=== PATIENT | female | born 1945 | race Caucasian/White ===

== ENCOUNTER → 2017-02-08 08:30 | Outpatient (CLI) | payer MEDICARE, OTHER ==
[2014-02-13 17:51] VITALS: BMI 29.2
[~2017-02-08 08:30] MED LIST: ASPIRIN325 MG PO; ASPIRIN81 MG PO; CATAPRES0.1 MG PO; CELEXA20 MG PO; CYCLOBENZAPRINE10 MG PO; K-DUR20 MEQ PO; KLONOPIN1 MG PO; LASIX40 MG PO; PLAVIX75 MG PO; PRAVACHOL20 MG PO; ZANTAC150 MG PO
[2017-03-04 16:48] VITALS: BMI 25.5
== END | disposition home or self-care (01) ==
LOC: D.US 08:30
DX: C93.10 Chronic myelomonocytic leukemia not having achieved remission (principal)

== ENCOUNTER 2017-10-02 16:56 | Observation (INO) | payer MEDICARE, OTHER ==
--- NOTE | ~2017-10-02 | HEMODYNAMI ---
PATIENT:BRADEN APODACA MEDICAL RECORD: [id number] : 49 LOCATION:[facility] D.2120 ADMISSION DATE: 10/02/17 Generatedon:10/03/201713:26 Patient name: BRADEN APODACA Patient #: [id number] : 1945 Date of study: 10/03/2017 Page: Of Hemodynamic Procedure Report Patient Data Patient Demographics Procedure consent was obtained First Name: BRADEN Gender: Female Last Name: CONSTANZA : 1945 [facility] Initial: L Age: 72 year(s) Patient #: [id number] Race: SSN: [id number] Additional ID: [id number] Contact details Address: [place] [address] State: [place] City: [place] Zip code: [address] Past Medical History Allergies Allergen Reaction Date Comments Reported Codeine 03/05/2017 Other allergy 03/05/2017 hydrocodone, tramadol Other allergy 10/03/2017 codeine, tramadol,hydrocodone Admission Admission Data Admission Date: 10/02/2017 Admission Time: 19:05 Arrival Date: 10/02/2017 Arrival Time: 19:05 Admit Source: Other Insurance Payor: Medicare Room #: D.2120 Lab Results Lab Result Date: 10/03/2017 Lab Result Time: 0:00 Biochemistry Name Units Result Min Max BUN mg/dl 20 --(----)*- 7 18 Creatinine mg/dl 0.9 --(-*--)-- 0.6 1.3 CBC Name Units Result Min Max Hemoglobin g/dl 12.5 *-(----)-- 13.5 17.5 Procedure Procedure Types Cath Procedure Diagnostic Procedure [facility] ED w/Coronaries PCI Procedure Coronary Stent Initial Miscellaneous Procedures Moderate Sedation up to 30 minutes Procedure Description Procedure Date Procedure Date: 10/03/2017 Procedure Start Time: 13:04 Procedure End Time: 13:23 Procedure Staff Name Function Jose Cerna MD Performing Physician Jose J Apodaca RN Nurse Ale Soto RT Monitor Sergio Romero RT Scrub Procedure Data Cath Procedure Fluoroscopy Diagnostic fluoroscopy Total fluoroscopy Time: 6.2 time: 6.2 min min Diagnostic fluoroscopy Total fluoroscopy dose: 271 dose: 271 mGy mGy Contrast Material Contrast Material Type Amount (ml) Isovue 300 109 Entry Location Entry Primary Successful Side Size Upsize Upsize Entry Closure Raman ccessful Closure Location (Fr) 1 (Fr) 2 (Fr) Remarks Device Remarks Radial Right 6 Fr Mechanical artery Short Compression Estimated blood loss: 5 ml Diagnostic catheters Device Type Used For End Catheter Placement Diagnostic Terumo 5Fr Multi-vessel Wheeler 110cm catheter Angiography Procedure Complications No complications Procedure Medications Medication Administration Route Dosage Oxygen NC 2 l/min Heparin Flush Bag added to field 2 bags (1000units/500ml NS) 0.9% NaCl I.V. 100 ml/hr Radial Cocktail added to field 1 syringe (Verapomil 2mg/Nitro 400mcg/Heparin 1500units) Fentanyl I.V. 50 mcg Versed I.V. 1 mg Radial Cocktail I.A. 1 syringe (Verapomil 2mg/Nitro 400mcg/Heparin 1500units) Fentanyl I.V. 50 mcg Versed I.V. 1 mg Heparin Bolus I.V. 4000 units Integrilin (Bolus I.V. 5.6 ml 2mg/ml) Integrilin (Bolus wasted 4.4 ml 2mg/ml) Plavix P.O. 600 mg Hemodynamics Rest HGB: 12.5 (g/dl) Heart Rate: 59 (bpm) Pressure Samples Time Site Value (mmHg) Purpose Heart Use Rate(bpm) 13:06 LV 57/-7,2 Snapshot 66 Snapshots Pre Cath Intra NCS Post Cath Vital Signs Time Heart Resp SPO2 etCO2 NIBP (mmHg) Rhythm Pain Sedation Rate (ipm) (%) (mmHg) Status Level (bpm) 12:12:32 58 20 97 0 128/57(99) NSR 0 (11) 10(A) , No pain 12:16:52 56 18 97 0 121/60(92) NSR 0 (11) 10(A) , No pain 12:21:12 59 16 96 0 129/57(97) NSR 0 (11) 10(A) , No pain 12:25:36 59 17 99 28.4 128/54(101) NSR 0 (11) 10(A) , No pain 12:29:58 59 17 99 32.1 119/55(95) NSR 0 (11) 10(A) , No pain 12:34:16 60 18 98 23.1 123/57(95) NSR 0 (11) 10(A) , No pain 12:38:35 62 18 98 9.7 131/61(96) NSR 0 (11) 10(A) , No pain 12:42:50 62 19 97 0 119/56(95) NSR 0 (11) 10(A) , No pain 12:47:08 63 16 98 1.4 121/59(103) NSR 0 (11) 10(A) , No pain 12:51:23 61 16 98 34.3 117/54(89) NSR 0 (11) 10(A) , No pain 12:55:36 62 18 97 23.1 119/59(92) NSR 0 (11) 10(A) , No pain 12:59:55 60 18 98 33.6 119/53(95) NSR 0 (11) 10(A) , No pain 13:04:13 61 17 98 38.1 120/56(88) NSR 0 (11) 9(A) , No pain 13:08:20 69 18 97 36.6 105/52(89) NSR 0 (11) 9(A) , No pain 13:12:32 70 17 97 32.8 115/58(92) NSR 0 (11) 9(A) , No pain 13:16:49 71 17 97 33.6 113/58(83) NSR 0 (11) 9(A) , No pain 13:21:04 69 17 98 35.8 130/57(94) NSR 0 (11) 9(A) , No pain 13:24:36 65 17 97 29.8 125/63(93) NSR 0 (11) 10(A) , No pain Medications Time Medication Route Dose Verified Delivered Reason Note s Effectiveness by by 12:20:11 Oxygen NC 2 l/min Jose Lux Per physician Eryn Apodaca RN 12:20:21 Heparin Flush added 2 bags Jose Lux used for Bag to Eryn Apodaca RN procedure (1000units/500ml field NS) 12:20:31 0.9% NaCl I.V. 100 Jose Lux Per physician ml/hr Eryn Apodaca RN 12:20:42 Radial Cocktail added 1 Jose Lux used for (Verapomil to syringe Eryn Apodaca RN procedure 2mg/Nitro field 400mcg/Heparin 1500units) 13:00:57 Fentanyl I.V. 50 mcg Jose Lux for sedation Eryn Apodaca RN 13:01:35 Versed I.V. 1 mg Jose Josephy for sedation Eryn Apodaca RN 13:07:11 Radial Cocktail I.A. 1 Jose Forbesrey for (Verapomil syringe Eryn Cerna MD vasodilation 2mg/Nitro 400mcg/Heparin 1500units) 13:07:17 Fentanyl I.V. 50 mcg Jose Lux for sedation Eryn Apodaca RN 13:07:22 Versed I.V. 1 mg Jose Lux for sedation Eryn Apodaca RN 13:12:24 Heparin Bolus I.V. 4000 Jose Lux for units Eryn Apodaca RN anticoagulation 13:12:37 Integrilin I.V. 5.6 ml Jose Lux for (Bolus 2mg/ml) Eryn Apodaca RN anticoagulation 13:12:49 Integrilin wasted 4.4 ml Jose Lux for (Bolus 2mg/ml) Eryn Apodaca RN anticoagulation 13:23:20 Plavix P.O. 600 mg Jose Lux for Eryn Apodaca RN antiplatelet therapy Procedure Log Time Note 11:45:15 Jose J Apodaca RN sent for patient. Start room use. 11:46:25 Informed consent obtained and on chart 11:46:48 Diagnostic Cath Status : Elective 11:48:16 Time tracking: Regular hours 11:48:38 Plan of Care:Hemodynamics will remain stable., Cardiac rhythm will remain stable., Comfort level will be maintained., Respiratory function will remain adequate., Patient/ family verbilizes understanding of procedure., Procedure tolerated without complication., Recovers from procedure without complications.. 11:48:48 Admit Source: Other 11:48:59 Arrival Date: 10/02/2017 7:05:00 PM 11:49:06 Insurance Payor : Medicare 11:49:42 Lab Result : Creatinine 0.9 mg/dl 11:49:42 Lab Result : BUN 20 mg/dl 11:49:42 Lab Result : Hemoglobin 12.5 g/dl 11:59:47 Patient received from Med II to CCL 3 Alert and oriented. Tansferred to table in Supine position. 11:59:48 Warm blankets applied, and rosalie hugger turned on for patient comfort. 11:59:48 Correct patient and procedure confirmed by team. 11:59:49 ECG and BP/O2 sat monitors applied to patient. 11:59:50 Vital chart was started 12:11:11 Baseline sample Acquired. 12:11:43 Baseline sample Acquired. 12:11:49 Rhythm: sinus rhythm 12:11:53 Full Disclosure recording started 12:12:02 H&P Date Dictated: 10/03/2017 New H&P dictated by physician.. 12:12:08 Pre-procedure instructions explained to patient. 12:12:08 Pre-op teaching completed and patient verbalized understanding. 12:12:10 Family in waiting room. 12:12:11 Patient NPO since Midnight. 12:12:37 Patient allergic to Other allergycodeine, tramadol,hydrocodone 12:12:47 Is the patient allergic to Iodine/contrast media? Yes. 12:12:48 Was the patient premedicated? Yes 12:12:55 Is patient on blood thinner?No 12:12:56 Patient diabetic? No. 12:13:00 Previous problem with sedation/anesthesia? No ? 12:13:10 Snore? No 12:13:11 Sleep apnea? No 12:13:13 Deviated septum? No 12:13:14 Opens mouth fully? Yes 12:13:27 Sticks out tongue? Yes 12:13:29 Airway obstruction? Yes ? 12:13:33 Dentures? No ? 12:13:40 Pre procedure: right dorsailis pedis pulse 1+ Palpable, but thready & weak; easily obliterated 12:13:43 Pre procedure: left dorsailis pedis pulse 1+ Palpable, but thready & weak; easily obliterated 12:13:45 Patient pain scale 0/10 ?. 12:13:52 IV patent on arrival in port with 0.9% NaCl at O. 12:13:55 Lab results completed and on chart. 12:14:00 Right Radial & Right Groin area was prepped with chlora-prep and draped in sterile fashion 12:14: Alarms reviewed by R. N. 12:14: Sharps counted by scrub and verified by R.N. 12:20:11 Oxygen 2 l/min NC was administered by Jose J Apodaca RN; Per physician; 12:20:21 Heparin Flush Bag (1000units/500ml NS) 2 bags added to field was administered by Jose J Apodaca RN; used for procedure; 12:20:31 0.9% NaCl 100 ml/hr I.V. was administered by Jose J Apodaca RN; Per physician; 12:20:42 Radial Cocktail (Verapomil 2mg/Nitro 400mcg/Heparin 1500units) 1 syringe added to field was administered by Jose J Apodaca RN; used for procedure; 12:37:47 Zero performed for pressure channel P1 12:38:24 Zero performed for pressure channel P1 12:49:01 Physician arrived 13:00:33 Physician arrived 13:00:33 --------ALL STOP TIME OUT------ 13:00:34 Final Timeout: patient, procedure, and site verified with staff and physician. All members of the team are in agreement. 13:00:37 Right Radial & Right Groin site verified by team. 13:00:40 Physical assessment completed. ASA score P 2 - A patient with mild systemic disease as per Jose Cerna MD. 13:00:44 Sedation plan: IV Moderate Sedation Versed, Fentanyl 13:00:57 Fentanyl 50 mcg I.V. was administered by oJse J Apodaca RN; for sedation; 13:01:35 Versed 1 mg I.V. was administered by Jose J Apodaca RN; for sedation; 13:04:32 Use device set Radial Dx 13:04:33 Acist Syringe opened to sterile field. 13:04:34 Medline Cath Pack opened to sterile field. 13:04:34 Bag Decanter opened to sterile field. 13:04:34 Terumo 6Fr Slender Glidesheath opened to sterile field. 13:04:35 St Tino 260cm J .035 wire opened to sterile field. 13:04:35 Acist Hand Control opened to sterile field. 13:04:35 Acist Manifold opened to sterile field. 13:04:36 Tegaderm 4 x 4 opened to sterile field. 13:04:36 MBrace Wrist Support opened to sterile field. 13:04:39 Procedure started. 13:04:44 Local anesthetic to right radial artery with Lidocaine 2% by Jose Cerna MD.INITIAL ACCESS ONLY 13:04:52 A 6 Fr Short sheath was inserted into the Right Radial artery 13:05:19 A Diagnostic Terumo 5Fr Wheeler 110cm catheter was advanced over the wire and used for Multi-vessel Angiography. 13:06:53 LV hemodynamics recorded. 13:07:00 LV gram done using SLATER 13:07:02 Injector settings: Ml/sec: 5, Volume: 15, 13:07:08 EF : 60 % 13:07:11 Radial Cocktail (Verapomil 2mg/Nitro 400mcg/Heparin 1500units) 1 syringe I.A. was administered by Jose Cerna MD; for vasodilation; 13:07:17 Fentanyl 50 mcg I.V. was administered by Jose J Apodaca RN; for sedation; 13:07:18 LCA angiography performed. 13:07:22 Versed 1 mg I.V. was administered by Jose J Apodaca RN; for sedation; 13:07:22 Injector settings: Ml/sec: 3, Volume: 6, 13:08:24 RCA angiography performed. 13:08:27 Injector settings: Ml/sec: 3, Volume: 6, 13:09:09 Merit BasixCompak Inflation Kit opened to sterile field. 13:10:32 Amador Whisper J 300cm 0.014 guide wire opened to sterile field. 13:10:33 Medtronic Launcher 6Fr AR 2.0 guide catheter opened to sterile field. 13:10:56 Catheter removed. 13:10:58 Proceeding to intervention. 13:11:06 6 Fr ar 2 guide catheter was inserted over the wire 13:11:10 whisper wire advanced. 13:11:12 Wire advanced across lesion. 13:12:24 Heparin Bolus 4000 units I.V. was administered by Jose J Apodaca RN; for anticoagulation; 13:12:37 Integrilin (Bolus 2mg/ml) 5.6 ml I.V. was administered by Jose J Apodaca RN; for anticoagulation; 13:12:49 Integrilin (Bolus 2mg/ml) 4.4 ml wasted was administered by Jose J Apodaca RN; for anticoagulation; 13:13:28 The Mor RX 2.5 x 18 stent was advanced then removed because of failure to cross lesion 13:14:55 [place] Blink Messenger Choice PT Extra Support 182cm wire opened to sterile field. 13:15:30 Wire removed. 13:15:35 choice pt wire advanced. 13:19:06 Inflation number: 1 A Euphora 2.5 x 15 Balloon was prepped and advanced across the Dist RCA, then inflated to 15 KYLER for 0:10 (min:sec). 13:19:10 Inflation number: 2 The Euphora 2.5 x 15 Balloon was reinflated across the Dist RCA, to 15 KYLER for 0:10 (min:sec). 13:19:14 Balloon removed over the wire. 13:19:48 Inflation Number: 3 A [place] RX 2.5 x 18 stent was prepped and advanced across the Dist RCA. The stent was deployed at 23 KYLER for 0:10 (min:sec). 13:19:53 Stent catheter was removed intact over wire. 13:19:57 Wire removed. 13:19:58 Guide catheter removed. 13:20:22 Terumo TR Band Standard opened to sterile field. 13:20:30 Sheath removed intact; hemostasis achieved with Mechanical Compression to the Right Radial artery. 13:20:32 Procedure ended.(Physican Out) 13:21:41 Fluoroscopy time 06.20 minutes. 13:21:47 Fluoroscopy dose: 271 mGy 13:21:47 Flurop Dose total: 271 13:21:51 Contrast amount:Isovue 300 109ml. 13:21:53 Sharps counted by scrub and verified by R.N. 13:21:55 TR band inflated with 10cc of air. 13:21:57 Insertion/operative site no bleeding no hematoma. 13:22:02 Post right radial artery:stable 13:22:04 Post Procedure Pulses reassessed and unchanged 13:22:06 Post procedure rhythm: unchanged. 13:22:09 Estimated blood loss: 5 ml 13:22:10 Post procedure instruction explained to patient.Patient verbalizes understanding. 13:22:10 Patient needs reinforcement of post procedure teaching. 13:22:23 Procedure type changed to Cath procedure, Diagnostic procedure, LHC, LHC w/Coronaries, PCI procedure, Coronary Stent Initial, Miscellaneous Procedures, Moderate Sedation up to 30 minutes 13:22:56 Procedure and supply charges have been captured, reviewed, submitted and are correct. 13:23:01 Procedure Complication : No complications 13:23:03 Vital chart was stopped 13:23:04 See physician's report for complete and final results. 13:23:07 Report given to [facility]. 13:23:15 Patient transfered to [facility] II with Stretcher. 13:23:16 Procedure ended. 13:23:16 Full Disclosure recording stopped 13:23:20 Plavix 600 mg P.O. was administered by Jose J Apodaca RN; for antiplatelet therapy; 13:23:23 ACC-PCI Only Patient was given prescriptions, or instructed by Jose Cerna MD to start/continue the following medications upon discharge: Plavix 13:23:25 End room use (Document Last) Intervention Summary Intervention Notes Time ActionType Lesion and Equipment Action# Pressure Duration Attributes Used 13:13:28 Discard [place] RX Stent 2.5 x 18 stent 13:19:06 Inflate Dist RCA Euphora 1 15 00:10 balloon 2.5 x 15 Balloon 13:19:10 Reinflate Dist RCA Euphora 2 15 00:10 balloon 2.5 x 15 Balloon 13:19:48 Place stent Dist RCA Mor RX 3 23 00:10 2.5 x 18 stent Device Usage Item Name Manufacture Quantity Catalog Number Hospital Part Current Mini mal Lot# / Charge Number Stock Stock Serial# Code Acist Acist 1 62537 317723 817118 149323 20 Syringe Medical Systems Inc Medline Cardinal 1 [id number] 147050 05286 545416 5 Cath Pack Health Bag Microtek 1 2001S 024156 50968 698405 5 Telerik. Terumo 6Fr Terumo 1 [id number] 452266 982601 302709 [address] Tino St Tino 1 [id number] 402136 515258 929345 30 260cm J .035 wire Acist Hand Acist 1 36945 740514 645883 310359 5 24PageBooks Systems Inc Acist Acist 1 97705 848625 376732 272304 5 iVerse Media Systems Geenapp Tegaderm 4 3M 1 1626W 220421 030353 026257 5 x 4 MBrace Advanced 1 140-0250-00 343469 34912 133262 5 Wrist Vascular Support Dynamics Diagnostic Terumo 1 70-7629 190620 078546 550620 5 Terumo 5Fr Wheeler 110cm catheter Merit Merit 1 [id number] 513485 426638 674556 15 BasixCompak Medical Inflation Kit Amador Amador 1 [id number] 081649 405873 863961 5 Whisper J Vascular 300cm 0.014 guide wire Medtronic Medtronic 1 [id number] 264224 54199 312187 1 Launcher 6Fr AR 2.0 guide catheter [place] RX 2.5 Medtronic 1 [id number] 318643 2133799 131237 5 [id number] x 18 stent [place] Sci [place] 1 [id number] 250903 018276 534402 5 Choice PT Scientific Extra Support 182cm wire Euphora 2.5 Medtronic 1 [id number] 957305 125987 993574 5 [id number] x 15 Balloon Terumo TR Terumo 1 [id number] 676741 793986 317067 40 Band Standard Signature Audit [place] Stage Time Signature Unsigned Intra-Procedure 10/03/2017 Ale Soto 1:26:00 PM RT(R) Signatures Monitor : Ale Soto RT Signature : Date : Time : [address] [place] [address]
[2017-10-02 17:56] LABS: BASOPHILS 0.2 % (0-2); EOSINOPHILS 0.5 % (0-7); HEMATOCRIT 38.7 % (36.0-48.0); HEMOGLOBIN 12.5 g/dL (12-16); IMMATURE GRANULOCYTES 0.8 % (0-5); LYMPHOCYTES 24.4 % (15-50); MCH 23.1 pg (26.0-34.0); MCHC 32.3 g/dL (31.0-37.0); MCV 71.5 fL (80.0-100.0); MONOCYTES 17.1 % (2-11); PLATELET COUNT 95 10x3/uL (130-400); RBC 5.41 10x6/uL (4.00-5.40); RDW 17.9 % (11.5-14.5); WBC 6.3 10x3/uL (4.8-10.8)
[2017-10-02 18:04] LABS: ALBUMIN 3.5 g/dL (3.4-5.0); ALKALINE PHOSPHATASE 53 U/L (46-116); ALT (SGPT) 11 U/L (10-68); CALC OSMOLALITY 288 mosm/kg (275-300); CALCIUM 9.6 mg/dL (8.5-10.1); CARBON DIOXIDE 27.2 mmol/L (21.0-32.0); CHLORIDE - SERUM 105 mmol/L (98-107); CREATININE - SERUM 0.9 mg/dL (0.6-1.3); POTASSIUM - SERUM 3.5 mmol/L (3.5-5.1); PROTEIN - SERUM 7.4 g/dL (6.4-8.2); SODIUM 142 mmol/L (136-145); UREA NITROGEN 20 mg/dL (7-18); eGFR NON AFRICAN AMERICAN 66 mL/min (90-120)
[2017-10-02 18:05] LABS: GLUCOSE 149 mg/dL (74-106)
[2017-10-02 18:11] LABS: CHOL - HDL RATIO 4.9 ratio (2.3-4.1); CHOLESTEROL, TOTAL 123 mg/dL (0-200); CKMB 0.1 U/L (0.0-3.6); CREATINE KINASE 24 UL (21-215); HDL CHOLESTEROL 25 mg/dL (32-96); LDL CHOLESTEROL 77 mg/dL (0-100); LDL-HDL RATIO 3.1 ratio (1.5-3.5); TRIGLYCERIDE 107 mg/dL (30-200)
[2017-10-02 18:18] LABS: TROPONIN-I < 0.017 ng/mL (0.000-0.060)
[2017-10-02 18:44] LABS: PLATELET ESTIMATE DECREASED
--- NOTE | 2017-10-02 19:49 | NUR ---
REPORT RECEIVED FROM ER.
[2017-10-02 20:29] LABS: MAGNESIUM - SERUM 2.1 mg/dL (1.8-2.4); THYROID STIMULATING HORMONE 2.65 uIU/mL (0.36-3.74)
[2017-10-02 21:29] LABS: CREATINE KINASE 21 UL (21-215)
[2017-10-02 21:30] LABS: TROPONIN-I < 0.017 ng/mL (0.000-0.060)
[2017-10-02 22:38] VITALS: BP 114/48
--- NOTE | 2017-10-03 02:23 | NUR ---
CALL LIGHT IN REACH. WILL CONTINUE WITH PLAN OF CARE. 57 SB ON TELEMETRY
[2017-10-03 04:13] LABS: CREATINE KINASE 20 UL (21-215); TROPONIN-I < 0.017 ng/mL (0.000-0.060)
--- NOTE | 2017-10-03 06:57 | NUR ---
NO CHANGES FROM PREVIOUS ASSESSMENT, CALL LIGHT IN REACH. NPO AT THIS TIME
--- NOTE | 2017-10-03 07:30 | NUR ---
ASSESSMENT DONE. DENIES NEEDS.
--- NOTE | 2017-10-03 07:40 | NUR ---
ASSESSMENT DONE. DENIES NEEDS.
[2017-10-03 08:53] VITALS: BP 99/34
[2017-10-03 09:05] LABS: BASOPHILS 0 % (0-2); EOSINOPHILS 0.4 % (0-7); HEMATOCRIT 32.7 % (36.0-48.0); HEMOGLOBIN 10.3 g/dL (12-16); IMMATURE GRANULOCYTES 0.4 % (0-5); LYMPHOCYTES 37.4 % (15-50); MCH 22.8 pg (26.0-34.0); MCHC 31.5 g/dL (31.0-37.0); MCV 72.5 fL (80.0-100.0); MONOCYTES 26.7 % (2-11); NEUTROPHILS 35.1 % (40-80); PLATELET COUNT 98 10x3/uL (130-400); RBC 4.51 10x6/uL (4.00-5.40); RDW 18.1 % (11.5-14.5)
[2017-10-03 09:17] LABS: CALC OSMOLALITY 283 mosm/kg (275-300); CALCIUM 8.5 mg/dL (8.5-10.1); CARBON DIOXIDE 27.9 mmol/L (21.0-32.0); CHLORIDE - SERUM 107 mmol/L (98-107); CREATININE - SERUM 0.8 mg/dL (0.6-1.3); POTASSIUM - SERUM 3.8 mmol/L (3.5-5.1); SODIUM 141 mmol/L (136-145); UREA NITROGEN 21 mg/dL (7-18); WBC 4.5 10x3/uL (4.8-10.8); eGFR NON AFRICAN AMERICAN 75 mL/min (90-120)
--- NOTE | 2017-10-03 09:24 | NUR ---
RESTS IN BED WITH CALL LIGHT IN REACH. IV PATENT. AT BS. WILL CONT. PLAN OF CARE.
[2017-10-03 09:26] LABS: GLUCOSE 94 mg/dL (74-106)
[2017-10-03 09:51] VITALS: Ht 167.6 cm
--- NOTE | 2017-10-03 10:28 | HP ---
PATIENT: BRADEN APODACA MEDICAL RECORD: [id number] ACCOUNT: [id number] LOCATION:[address] : [birth year] ADMISSION DATE: 10/02/17 HISTORY AND PHYSICAL EXAMINATION HISTORY OF PRESENT ILLNESS: Ms. Apodaca is a 72-year-old white female that began experiencing some chest pain with shortness of breath. Today, she presents to the Emergency Room where she was found to be in atrial fibrillation with rapid ventricular response. She has a known history of coronary artery disease. Her licensed massage therapist is Dr. Cerna. She recently had an echo. She is subsequently admitted, her initial cardiac enzymes are negative. She was started on a diltiazem drip in the Emergency Room and is now converted to sinus rhythm and is pain free. PAST MEDICAL HISTORY: Significant for known coronary artery disease, anxiety, depression, chronic low back pain with spinal stenosis, hyperlipidemia, hypertension and chronic myeloid leukemia and is followed by Dr. Castle. PAST SURGICAL HISTORY: Include appendectomy, cholecystectomy - open procedure, hysterectomy, lumbar laminectomy in 2011. She has had previous PTCA and a colon resection in 2011. ALLERGIES AND INTOLERANCES: INCLUDE CODEINE AND TRAMADOL. HOME MEDICATIONS: Include citalopram 20 mg a day, clonazepam 2 at bedtime, clonidine 1 p.o. at bedtime, hydroxyurea 500 mg b.i.d. She is supposed to be on pravastatin but it is not with her home meds today and also takes Lasix and potassium p.r.n. swelling. FAMILY HISTORY: Significant for congestive heart failure and coronary artery disease. SOCIAL HISTORY: The patient is . She is retired. She smokes a half pack to pack per day and she consumes caffeine on a regular basis. REVIEW OF SYSTEMS: She denies any fever, chills, sweats, weight has been stable. Chest pain is described as above with associated shortness of breath. No nausea or vomiting, no diaphoresis. No recent change in bladder or bowel habits. PHYSICAL EXAMINATION: HEAD, EYES, EARS, NOSE, AND THROAT: Head is normocephalic, sclerae nonicteric. Mucous membranes are moist. NECK: Soft and supple. No bruits are appreciated at this time. HEART: Regular rate and rhythm with occasional extrasystoles. LUNGS: Clear at this time. ABDOMEN: Soft, nontender. EXTREMITIES: She has got some mild pedal edema. No ankle edema. NEUROLOGIC: Without any gross focal deficits. IMPRESSION: 1. Atrial fibrillation with rapid ventricular response, now back in sinus. 2. Chest pain with above episode, now resolved. 3. Chronic myeloid leukemia followed by Dr. Castle. 4. Hypertension. HISTORY AND PHYSICAL [id number] BRADEN APODACA Bowen 5. Hyperlipidemia, currently off her statin it looks like. 6. Chronic anxiety and depression. PLAN: Admit, cycle her enzymes, diltiazem drip was started in the ER. We will continue for now. Cardiology consult with Dr. Cerna, will check a TSH, magnesium. See orders for rest of plan. TRANSINT:[id number] Voice Confirmation ID: [id number] DOCUMENT ID: [id number] MAN MORALES DO at 1028 CC: [id number] DICTATION DATE: 10/02/172226 SENIOR MARKET RESEARCH ANALYST: 10/02/17 1778 ADM IN [place] [id number] [place] [address]
[2017-10-03 11:57] VITALS: BP 134/55
--- NOTE | 2017-10-03 11:58 | NUR ---
TO RN CORRECTIONAL PER BED
[2017-10-03] MEDS ORDERED: HYDROXYUREA500 MG PO (14:45)
[2017-10-03] MEDS ORDERED: PRAVACHOL20 MG PO (14:46)
--- NOTE | 2017-10-03 14:46 | OP ---
PATIENT NAME: BRADEN APODACA MEDICAL RECORD: [id number] :49 LOCATION:D.M2 D.2120 ADMISSION DATE:10/02/17 SURGEON: SIMONA TAPIA MD DATE OF OPERATION: 10/03/2017 PROCEDURES: 1. PTCA stent to RCA. 2. Left heart catheterization. 3. Selective coronary angiography. 4. Left ventriculogram. INDICATION: Unstable angina. PROCEDURE IN DETAIL: After informed consent was obtained and after detailed explanation of risks, benefits as well as alternative therapies, the patient elected to proceed with angiogram and angioplasty. The right radial area was prepped and draped in normal sterile fashion. The right radial artery was cannulated via modified Seldinger technique with placement of 6-Panamanian sheath. All catheters exchanged through this sheath. FINDINGS: The left ventriculogram was performed in the standard 30-degree SLATER view reveals good cardiac wall motion throughout all segments. Overall ejection fraction estimated 60%. SELECTIVE CORONARY ANGIOGRAPHY: 1. Left main showed no significant angiographic disease. 2. Left anterior descending has previously placed stent. This is widely patent with no significant restenosis. No disease elsewise at the LAD or its branches. 3. Left circumflex is small, nondominant with no significant disease. 4. Right coronary artery is large, dominant with 90% stenosis distally. PTCA STENT OF THE RCA: The stent used was a 2.5 x 18 mm [place] taken to 21 atmospheres. Result was 0% residual stenosis. OVERALL IMPRESSION: Successful percutaneous transluminal coronary angioplasty stent of the right coronary artery going from 90% initial stenosis to 0% residual. TRANSINT:[id number] Voice Confirmation ID: [id number] DOCUMENT ID: [id number] SIMONA TAPIA MD at 1446 CC: [id number] DICTATION DATE: 10/03/17 1411 BAGGAGE SMASHER: 10/03/17 1428 [place] [address]
[2017-10-03 15:09] VITALS: BP 118/57
[2017-10-03] MEDS ORDERED: PLAVIX75 MG PO (15:41)
--- NOTE | 2017-10-03 18:34 | NUR ---
DC GIVEN TO PT
--- NOTE | 2017-10-03 18:49 | NUR ---
DC HOME PER PERSONAL CAR
== END 2017-10-03 18:50 | disposition home or self-care (01) ==
LOC: D.ER 16:56 → OBSVTIME 19:05 → D.M2 19:05
PROVIDERS: Emergency Medicine; Internal Medicine Interventional Cardiology; ADMIT Family Medicine
DX: I25.110 Atherosclerotic heart disease of native coronary artery with unstable angina pectoris (principal); Z95.5 Presence of coronary angioplasty implant and graft; I48.0 Paroxysmal atrial fibrillation; F41.8 Other specified anxiety disorders; E78.5 Hyperlipidemia, unspecified; I10 Essential (primary) hypertension; Z72.0 Tobacco use; C92.10 Chronic myeloid leukemia, BCR/ABL-positive, not having achieved remission
CPT/HCPCS: 93458; C9600

== ENCOUNTER 2017-10-04 11:14 | Emergency (ER) | payer MEDICARE, OTHER ==
[~2017-10-04 11:14] MED LIST changes: +HYDROXYUREA500 MG PO
[2017-10-04 11:40] LABS: BASOPHILS 0.2 % (0-2); EOSINOPHILS 0 % (0-7); HEMATOCRIT 36.2 % (36.0-48.0); HEMOGLOBIN 11.6 g/dL (12-16); LYMPHOCYTES 21.3 % (15-50); MCV 71.7 fL (80.0-100.0); MONOCYTES 19.5 % (2-11); RBC 5.05 10x6/uL (4.00-5.40); RDW 17.9 % (11.5-14.5); WBC 4.4 10x3/uL (4.8-10.8)
[2017-10-04 11:44] LABS: PLATELET COUNT 135 10x3/uL (130-400)
[2017-10-04 12:03] LABS: ALBUMIN 3.2 g/dL (3.4-5.0); ALKALINE PHOSPHATASE 50 U/L (46-116); BILIRUBIN - TOTAL 0.61 mg/dL (0.2-1.3); CARBON DIOXIDE 25.2 mmol/L (21.0-32.0); CHLORIDE - SERUM 106 mmol/L (98-107); CREATININE - SERUM 0.9 mg/dL (0.6-1.3); POTASSIUM - SERUM 3.6 mmol/L (3.5-5.1); PROTEIN - SERUM 6.8 g/dL (6.4-8.2); SODIUM 140 mmol/L (136-145); UREA NITROGEN 18 mg/dL (7-18); eGFR NON AFRICAN AMERICAN 66 mL/min (90-120)
[2017-10-04 12:04] LABS: ALT (SGPT) 15 U/L (10-68); CALC OSMOLALITY 285 mosm/kg (275-300); GLUCOSE 194 mg/dL (74-106)
[2017-10-04 12:13] LABS: CHOL - HDL RATIO 4.6 ratio (2.3-4.1); CHOLESTEROL, TOTAL 101 mg/dL (0-200); CKMB 0.1 U/L (0.0-3.6); CREATINE KINASE 23 UL (21-215); HDL CHOLESTEROL 22 mg/dL (32-96); LDL CHOLESTEROL 62 mg/dL (0-100); LDL-HDL RATIO 2.8 ratio (1.5-3.5); TRIGLYCERIDE 88 mg/dL (30-200); TROPONIN-I 0.056 ng/mL (0.000-0.060)
--- NOTE | 2017-10-18 14:14 | CN ---
PATIENT NAME:BRADEN APODACA MEDICAL RECORD: [id number] : 49 LOCATION:D.ER ADMIT DATE: ACCOUNT: [id number] CONSULTING PHYSICIAN: SIMONA TAPIA MD REFERRING PHYSICIAN: JOHN TYLER MD DATE OF CONSULTATION: 10/04/2017 DIAGNOSES: 1. Paroxysmal atrial fibrillation. 2. Coronary artery disease. 3. Recent percutaneous transluminal coronary angioplasty stent. 4. Hypertension. HISTORY OF PRESENT ILLNESS: Ms. Apodaca presents with recurrent palpitation. She was just in the hospital, she presented with atrial fibrillation, converted to sinus rhythm, underwent cardiac catheterization, underwent PTCA stent. She is now having no chest pain. She is having recurrent palpitations. She was supposed to be discharged on sotalol. We wrote the prescription; however, she did not get the prescription, hence she has not gotten the sotalol. PHYSICAL EXAMINATION: GENERAL APPEARANCE: Well-nourished, well-developed, appears stated age. Level of distress, comfortable. PSYCHIATRIC: Mental status, alert, normal affect. Orientation, oriented to time, place and person. EYES: Lids and conjunctiva, noninjected. No discharge, no pallor. ENT: Lips, teeth, gums, normal dentition. Oropharynx, no cyanosis, no pallor. NECK: Carotid arteries, bilateral normal upstroke, no bruits, no thrills. JUGULAR VEINS: No jugular venous pressure or distention. CERVICAL LYMPH NODES: Nontender, nonenlarged. THYROID: Not enlarged. Nontender. No nodules. LUNGS: Respiratory effort, unlabored. CHEST: Normal curvature. No thoracic deformity. No chest wall tenderness. Percussion, resonant. Auscultation, clear. No wheezes, no rales, no rhonchi. CARDIOVASCULAR: Precordial exam, nondisplaced. No heaves or pericardial thrills. Rate and rhythm, regular. Heart sounds, normal S1, normal S2. No S3, no gallop, no rub. Systolic murmur, not heard. Diastolic murmur, not heard. EXTREMITIES: No cyanosis, no edema. Peripheral pulses, full and equal in all extremities, except as noted. No bruits appreciated. ABDOMEN: Soft, nondistended. Normal aorta. No bruit. Nontender. No masses. Liver, nontender, no hepatomegaly. Spleen, nontender, no splenomegaly. MUSCULOSKELETAL: No joint tenderness. No joint swelling. No erythema. NEUROLOGICAL: Normal gait, normal strength, normal tone. SKIN: Warm and dry. IMPRESSION: At this time, we will reinstitute the sotalol. She is on a Cardizem drip. She is trying to convert to sinus rhythm. She has episodes of sinus. We will give her 120 mg of sotalol p.o. now. If she converts, she can go home getting the prescription for sotalol 120 b.i.d. We will follow up as previously scheduled. TRANSINT:[id number] Voice Confirmation ID: [id number] DOCUMENT ID: [id number] CONSULT REPORT [id number] BRADEN APODACA, SIMONA ORTIZ at 1414 CC: [id number] DICTATION DATE: 10/04/17 1201 ECHO VASCULAR TECHNOLOGIST: 10/04/17 1233 DEP ER 10/04/[address] [id number]
== END 2017-10-04 14:38 | disposition home or self-care (01) ==
LOC: D.ER 11:14
PROVIDERS: Emergency Medicine
DX: I48.91 Unspecified atrial fibrillation (principal); I25.10 Atherosclerotic heart disease of native coronary artery without angina pectoris; Z85.6 Personal history of leukemia; R00.1 Bradycardia, unspecified; F17.200 Nicotine dependence, unspecified, uncomplicated

== ENCOUNTER → 2017-10-28 14:20 | Outpatient (CLI) | payer MEDICARE, OTHER | END | disposition home or self-care (01) | LOC: D.MAMMO 10:45 | DX: Z12.31 Encounter for screening mammogram for malignant neoplasm of breast (principal) ==